=== PATIENT | male | born 1960 ===

== ENCOUNTER 2020-06-16 05:59 | Outpatient (REF) | payer OTHER, SELFPAY ==
[2020-06-16 11:13] LABS: MANUAL DIFF FLAG NO
[2020-06-16 11:39] LABS: Basophils Percent Auto 0.6 % (0-2); Eosinophils Absolute Auto 0.1 X10*3/uL (0.0-0.4); Eosinophils Percent Auto 1.2 % (0-4); Hematocrit 47.8 % (42-52); Hemoglobin 15.4 g/dl (14.0-18.0); Imm Gran Abs Auto 0.02 X10*3/uL (0.00-0.03); Imm Gran Pct Auto 0.3 % (0.0-0.4); Lymphocytes Absolute Auto 1.9 X10*3/uL (1.2-4.9); Lymphocytes Percent Auto 28.7 % (20-40); Mean Corpuscular HGB Conc 32.2 g/dl (31.0-36.0); Mean Corpuscular Hemoglobin 29.4 pg (27.0-33.0); Mean Corpuscular Volume 91.2 fL (80-98); Mean Platelet Volume 11.9 fL (9.4-12.4); Monocytes Absolute Auto 0.6 X10*3/uL (0.1-1.2); Monocytes Percent Auto 8.9 % (2-11); Neutrophils Absolute Auto 4.1 X10*3/uL (2.0-8.3); Neutrophils Percent Auto 60.3 % (45-73); Platelet Count 188 X10*3/uL (160-400); Red Blood Count 5.24 X10*6/uL (4.60-5.80); Red Cell Distribution Width 12.7 % (11.0-16.0); White Blood Count 6.7 X10*3/uL (4.8-10.8)
[2020-06-16 12:11] LABS: Alanine Aminotransferase 38 U/L (0-40); Albumin Level 4.7 g/dL (3.5-5.0); Alkaline Phosphatase 79 U/L (39-117); Anion Gap 14 (12-20); Aspartate Amino Transferase 25 U/L (5-37); Bilirubin Total 0.9 mg/dL (0.0-1.0); Blood Urea Nitrogen 20 mg/dL (9-16); Calcium 9.2 mg/dL (8.4-10.2); Carbon Dioxide 29 mmol/L (22-29); Chloride 103 mmol/L (96-108); Cholesterol 180 mg/dL; Estimated Glomerular Filt Rate > 60; Glucose Fasting 101 mg/dL (60-99); HDL Cholesterol 39 mg/dL; LDL Cholesterol Calculated 114 mg/dl; Potassium 4.3 mmol/L (3.3-5.1); Sodium 142 mmol/L (135-145); Total Protein 6.9 g/dL (6.5-8.0); Triglycerides 137 mg/dL
== END 2020-06-16 06:00 | disposition home or self-care (01) ==
LOC: HO.HMGCLDS 05:59
PROVIDERS: PCP Internal Medicine; Visit Provider Internal Medicine
DX: Z00.01 Encounter for general adult medical examination with abnormal findings (principal); E78.9 Disorder of lipoprotein metabolism, unspecified; L21.9 Seborrheic dermatitis, unspecified
CPT/HCPCS: 36415; 80053; 80061; 85025

== ENCOUNTER 2020-10-09 15:08 | Outpatient (REF) | payer OTHER, SELFPAY ==
--- NOTE | ~2020-10-09 | XR_ITS ---
EXAMINATION: XR HAND, LEFT CLINICAL INFORMATION: Arthritis. Pain COMPARISON: None TECHNIQUE: PA, lateral, and oblique views of the left hand. FINDINGS: Subchondral cystic change noted at the base of the lunate. There is degenerative change at the first CMC joint. No fracture, dislocation or destructive process. XR/XR hand LT min 3V IMPRESSION: Degenerative change noted.
--- NOTE | ~2020-10-09 | XR_ITS ---
EXAMINATION: XR HAND, RIGHT CLINICAL INFORMATION: Hand pain. COMPARISON: None TECHNIQUE: PA, lateral, and oblique views of the right and left hand. FINDINGS: Right hand: Bone density normal. No fracture, dislocation or destructive lesion or erosive change. There is minor narrowing however at the first TMT joint space with marginal osteophyte formation. Left hand: Bone density normal. No fracture, dislocation or destructive lesion. There is subchondral cystic degenerative change at the base of the lunate. There is narrowing of the first CMC joint space with marginal spurring. XR/XR hand RT min 3V IMPRESSION: Bilateral degenerative arthritic changes noted but no fracture or destructive process.
== END 2020-10-09 15:09 | disposition home or self-care (01) ==
LOC: HO.HMGCX 15:08
PROVIDERS: PCP Internal Medicine; Visit Provider Internal Medicine
DX: M79.641 Pain in right hand (principal); M79.642 Pain in left hand
CPT/HCPCS: 73130

== ENCOUNTER 2021-01-11 06:01 | Outpatient (REF) | payer OTHER, SELFPAY ==
[2021-01-11 11:53] LABS: Alanine Aminotransferase 37 U/L (0-40); Albumin Level 4.5 g/dL (3.5-5.0); Alkaline Phosphatase 72 U/L (39-117); Aspartate Amino Transferase 22 U/L (5-37); Bilirubin Direct 0.2 mg/dL (0.0-0.5); Bilirubin Total 0.7 mg/dL (0.0-1.0); Cholesterol 189 mg/dL; HDL Cholesterol 44 mg/dL; LDL Cholesterol Calculated 119 mg/dl; Total Protein 6.7 g/dL (6.5-8.0); Triglycerides 132 mg/dL
== END 2021-01-11 06:02 | disposition home or self-care (01) ==
LOC: HO.HMGCLDS 06:01
PROVIDERS: PCP Internal Medicine; Visit Provider Internal Medicine
DX: E78.9 Disorder of lipoprotein metabolism, unspecified (principal)
CPT/HCPCS: 36415; 80061; 80076

== ENCOUNTER 2021-07-08 06:00 | Outpatient (REF) | payer OTHER, SELFPAY ==
[2021-07-08 12:11] LABS: Alanine Aminotransferase 43 U/L (0-40); Albumin Level 4.4 g/dL (3.5-5.0); Alkaline Phosphatase 68 U/L (39-117); Anion Gap 15 (12-20); Aspartate Amino Transferase 29 U/L (5-37); Bilirubin Direct 0.2 mg/dL (0.0-0.5); Bilirubin Total 0.7 mg/dL (0.0-1.0); Blood Urea Nitrogen 17 mg/dL (9-16); Calcium 9.4 mg/dL (8.4-10.2); Carbon Dioxide 22 mmol/L (22-29); Chloride 107 mmol/L (96-108); Estimated Glomerular Filt Rate > 60; Glucose Fasting 122 mg/dL (60-99); Potassium 4.4 mmol/L (3.3-5.1); Sodium 140 mmol/L (135-145); Total Protein 6.7 g/dL (6.5-8.0)
== END 2021-07-08 06:01 | disposition home or self-care (01) ==
LOC: HO.HMGCLDS 06:00
PROVIDERS: Visit Provider Internal Medicine
DX: E78.9 Disorder of lipoprotein metabolism, unspecified (principal)
CPT/HCPCS: 36415; 80053; 82248

== ENCOUNTER → 2021-08-12 12:56 | Outpatient (BNVA) | payer OTHER, SELFPAY | PROVIDERS: PCP Internal Medicine; Visit Provider Internal Medicine | DX: S61.216A Laceration without foreign body of right little finger without damage to nail, initial encounter (principal); W23.0XXA Caught, crushed, jammed, or pinched between moving objects, initial encounter; Z23 Encounter for immunization | CPT/HCPCS: 12001; 90715; 99203 ==

== ENCOUNTER → 2021-08-13 09:31 | Outpatient (BNVA) | payer OTHER, SELFPAY | PROVIDERS: PCP Internal Medicine; Visit Provider Internal Medicine | DX: S61.216A Laceration without foreign body of right little finger without damage to nail, initial encounter (principal); W26.9XXA Contact with unspecified sharp object(s), initial encounter | CPT/HCPCS: 99213 ==

== ENCOUNTER → 2021-08-20 13:18 | Outpatient (BNVA) | payer OTHER, SELFPAY | PROVIDERS: PCP Internal Medicine; Visit Provider Internal Medicine | DX: S61.316A Laceration without foreign body of right little finger with damage to nail, initial encounter (principal); W26.9XXA Contact with unspecified sharp object(s), initial encounter | CPT/HCPCS: 99213 ==

== ENCOUNTER 2022-03-07 09:23 | Outpatient (REF) | payer OTHER, SELFPAY ==
--- NOTE | ~2022-03-07 | XR_ITS ---
EXAMINATION: XR CHEST CLINICAL INFORMATION: Cough COMPARISON: None TECHNIQUE: 2 views of the chest were obtained. FINDINGS: No significant abnormality is noted involving the heart, lungs, mediastinum, bony thorax or soft tissues. XR/XR chest 2V IMPRESSION: Unremarkable chest examination.
[2022-03-07 11:36] LABS: MANUAL DIFF FLAG NO
[2022-03-07 11:49] LABS: Basophils Absolute Auto 0.1 X10*3/uL (0.0-0.2); Basophils Percent Auto 0.8 % (0-2); Eosinophils Absolute Auto 0.1 X10*3/uL (0.0-0.4); Eosinophils Percent Auto 0.6 % (0-4); Hematocrit 48.5 % (42.0-52.0); Hemoglobin 15.8 g/dl (14.0-18.0); Imm Gran Abs Auto 0.04 X10*3/uL (0.00-0.03); Imm Gran Pct Auto 0.5 % (0.0-0.4); Lymphocytes Absolute Auto 1.6 X10*3/uL (1.2-4.9); Lymphocytes Percent Auto 18.5 % (20-40); Mean Corpuscular HGB Conc 32.6 g/dl (31.0-36.0); Mean Corpuscular Hemoglobin 29.1 pg (27.0-33.0); Mean Corpuscular Volume 89.3 fL (80.0-98.0); Mean Platelet Volume 11.3 fL (9.4-12.4); Monocytes Absolute Auto 0.5 X10*3/uL (0.1-1.2); Monocytes Percent Auto 5.8 % (2-11); Neutrophils Absolute Auto 6.5 x10*3/uL (2.0-8.3); Neutrophils Percent Auto 73.8 % (45-73); Platelet Count 200 X10*3/uL (160-400); Red Blood Count 5.43 X10*6/uL (4.60-5.80); Red Cell Distribution Width 13.1 % (11.0-16.0); White Blood Count 8.7 X10*3/uL (4.8-10.8)
[2022-03-07 12:11] LABS: Alanine Aminotransferase 69 U/L (0-40); Albumin Level 4.5 g/dL (3.5-5.0); Alkaline Phosphatase 81 U/L (39-117); Anion Gap 12 (12-20); Aspartate Amino Transferase 36 U/L (5-37); Bilirubin Direct 0.2 mg/dL (0.0-0.5); Bilirubin Total 0.6 mg/dL (0.0-1.0); Blood Urea Nitrogen 18 mg/dL (9-16); Calcium 9.6 mg/dL (8.4-10.2); Carbon Dioxide 28 mmol/L (22-29); Chloride 105 mmol/L (96-108); Estimated Glomerular Filt Rate > 60; Glucose Random 102 mg/dL (60-115); Potassium 4.4 mmol/L (3.3-5.1); Sodium 141 mmol/L (135-145); Total Protein 6.8 g/dL (6.5-8.0)
[2022-03-07 12:29] LABS: Erythrocyte Sedimentation Rate 1 MM/HR (0-15)
[2022-03-08 15:57] LABS: CRP High Sensitivity 0.7 mg/L
== END 2022-03-07 09:24 | disposition home or self-care (01) ==
LOC: HO.HMGCX 09:23
PROVIDERS: PCP Internal Medicine; Visit Provider Nurse Practitioner Family
DX: R05.9 Cough, unspecified (principal); R10.9 Unspecified abdominal pain
CPT/HCPCS: 36415; 71046; 80048; 80076; 85025; 85652; 86141

== ENCOUNTER 2022-05-17 06:02 | Outpatient (REF) | payer OTHER, SELFPAY ==
[2022-05-17 12:10] LABS: Cholesterol 191 mg/dL; HDL Cholesterol 42 mg/dL; LDL Cholesterol Calculated 123 mg/dl; Triglycerides 130 mg/dL
[2022-05-17 12:34] LABS: Estimated Average Glucose 108 mg/dL; Hemoglobin A1C 148.6991 umol/L; Hemoglobin A1c % 5.4 %
== END 2022-05-17 06:03 | disposition home or self-care (01) ==
LOC: HO.HMGCLDS 06:02
PROVIDERS: PCP Internal Medicine; Visit Provider Internal Medicine
DX: R73.01 Impaired fasting glucose (principal); E78.9 Disorder of lipoprotein metabolism, unspecified
CPT/HCPCS: 36415; 80061; 83036

== ENCOUNTER 2022-11-15 06:02 | Outpatient (REF) | payer OTHER, SELFPAY ==
[2022-11-15 11:48] LABS: Estimated Average Glucose 105 mg/dL; Hemoglobin A1c % 5.3 %
[2022-11-15 12:02] LABS: Alanine Aminotransferase 34 U/L (0-40); Albumin Level 4.6 g/dL (3.5-5.0); Alkaline Phosphatase 64 U/L (39-117); Anion Gap 16 (12-20); Aspartate Amino Transferase 22 U/L (5-37); Bilirubin Total 0.9 mg/dL (0.0-1.0); Blood Urea Nitrogen 20 mg/dL (9-16); Calcium 9.8 mg/dL (8.4-10.2); Carbon Dioxide 22 mmol/L (22-29); Chloride 108 mmol/L (96-108); Cholesterol 209 mg/dL; Estimated Glomerular Filt Rate 56; Glucose Fasting 118 mg/dL (60-99); HDL Cholesterol 42 mg/dL; LDL Cholesterol Calculated 136 mg/dl; Potassium 3.8 mmol/L (3.3-5.1); Sodium 142 mmol/L (135-145); Triglycerides 155 mg/dL
== END 2022-11-15 06:03 | disposition home or self-care (01) ==
LOC: HO.HMGCLDS 06:02
PROVIDERS: PCP Internal Medicine; Visit Provider Internal Medicine
DX: Z00.01 Encounter for general adult medical examination with abnormal findings (principal); E78.9 Disorder of lipoprotein metabolism, unspecified; R73.01 Impaired fasting glucose
CPT/HCPCS: 36415; 80053; 80061; 83036

== ENCOUNTER 2022-11-25 13:48 | Outpatient (AMB) | payer OTHER, SELFPAY ==
[2022-11-25 13:50] VITALS: BP 130/84; PULSE 87; O2SAT 94; BMI 26.6
--- NOTE | 2022-11-25 13:50 | MHC.PC.OV ---
Vital Signs 11/25/22 13:50 Height 5 ft 10 in Weight 185 lb 6 oz BMI 26.6 BP 130/84 Blood Pressure Location Rt brachial Position Sitting Pulse 87 Pulse Source Pulse Oximeter Pulse Oximetry (%) 94 Oxygen Delivery Method Room Air Intake Visit Reasons: 6 month follow up Med Allergies No Known Allergies Allergy (Verified 11/25/22 13:50) Medication List - Last Reconciled 11/25/22 by Noreen Montes De Oca MD hydrocortisone 2.5% 1 appl topical BID PRN 30 days simvastatin 80 mg PO BEDTIME 90 days Tobacco use date assessed: 11/25/22 Dental Screening Dental Screen Date: 11/25/22 Did you have a dental visit in the last 12 months?: No Did you have a dental problem in the last 6 months where you did not have access to dental care?: No Was dental information given to patient?: No HPI 6 month follow up Med HPI Details Patient is 62-year-old male this is a 6 follow-up appointment Lipid disorder: Patient is taking simvastatin 80 mg and is tolerating it. Labs were done recently he has LDL is 130s range, we discussed adding Zetia which patient does not want at this time. Patient is prediabetic with elevated fasting sugar but hemoglobin A1c is 5.5 Patient had a physical exam appointment in May of next year Labs to be repeated before visit fasting PFSH Family History Other Substance use disorder Social History Housing: House Patient Tobacco Use Status: Former Tobacco user Quit Date: 1999 Tobacco use type: Cigarette Years Smoked: 25 year e-Cigarette/Vaping Use: Never Used service: No Current occupational status: employed Cognitive needs: No Hearing needs: No Vision needs: Yes Questionnaire Thrive Questionnaire Date Thrive assessed: 05/27/22 AUDIT C Alcohol Use Questionnaire (AUDIT-C) 1. How often do you have a drink containing alcohol?: Never 3. How often do you have six or more drinks on one occasion?: Never Total Score: 0 Score Reviewed/Action Taken: Yes EMANUEL-7 AMB Questionnaire EMANUEL-7 Date EMANUEL - 7 assessed: 05/27/22 Source: Developed by Drs. Hi Cool, Radha Santana, Francisco J Mcdonald and colleagues, with an educational susana from [employer]. Review of Systems Const Denies chills and Denies fever(s) ENT Denies epistaxis and Denies nasal discharge Card Denies chest pain Resp Denies chest congestion, Denies cough and Denies hemoptysis GI Denies diarrhea and Denies nausea Skin/Breast Denies rash Neuro Reports no additional complaints Psych Reports no additional complaints Endo Reports no additional complaints Physical exam (Primary Care) Vital Signs: Last Vital Signs Pulse 87 11/25/22 13:50 BP 130/84 11/25/22 13:50 Pulse Ox 94 11/25/22 13:50 Oxygen Delivery Method Room Air 11/25/22 13:50 BMI result Body Mass Index 26.6 Tobacco/Smoking Status: Tobacco use Status Tobacco use date assessed 11/25/22 11/25/22 13:52 Patient Tobacco Use Status Former Tobacco user 11/25/22 13:52 Tobacco use type Cigarette 11/25/22 13:52 e-Cigarette/Vaping Use Never Used 11/25/22 13:52 Thrive Assessment: Date of Thrive Assessment Date Thrive assessed 05/27/22 11/25/22 13:52 Const General: cooperative, comfortable and no acute distress Orientation/consciousness: patient oriented x3 HENMT Head: Yes normocephalic Eyes General: appearance normal, both eyes and all related structures Neck Neck: Yes supple Resp Effort & Inspection: normal respiratory effort, no cough and no stridor Cardio Rhythm: regular rhythm Heart sounds: S1 normal heart sound present and S2 normal heart sound present Skin General skin exam: turgor normal Neuro General: patient oriented x3, tone normal and moves all extremities Extrem Right lower extremity: no edema Left lower extremity: no edema Assessment and Plan Assessment & Plan (1) Impaired fasting blood sugar: Code(s): R73.01 - Impaired fasting glucose (2) Lipid disorder: Code(s): E78.9 - Disorder of lipoprotein metabolism, unspecified Plan Patient is 62-year-old male this is a 6 follow-up appointment Lipid disorder: Patient is taking simvastatin 80 mg and is tolerating it. Labs were done recently he has LDL is 130s range, we discussed adding Zetia which patient does not want at this time. Patient is prediabetic with elevated fasting sugar but hemoglobin A1c is 5.5 Patient had a physical exam appointment in May of next year Labs to be repeated before visit fasting Orders: Orders Comprehensive [place]. Panel Fast 6 Months E78.9 - Disorder of lipoprotein metabolism, unspecified, R73.01 - Impaired fasting glucose Lipid Panel 6 Months E78.9 - Disorder of lipoprotein metabolism, unspecified, R73.01 - Impaired fasting glucose Medications: Refilled simvastatin 80 mg PO BEDTIME 90 tabs 0RF 90 days Coding Level of Care Code Est Pt Level 3 (45458) Diagnoses Impaired fasting blood sugar R73.01 Lipid disorder E78.9
== END 2022-11-25 14:16 | disposition home or self-care (01) ==
PROVIDERS: Visit Provider Internal Medicine
DX: R73.01 Impaired fasting glucose (principal); E78.9 Disorder of lipoprotein metabolism, unspecified
CPT/HCPCS: 99213

== ENCOUNTER 2023-05-17 06:04 | Outpatient (REF) | payer OTHER, SELFPAY ==
[2023-05-17 11:55] LABS: Alanine Aminotransferase 27 U/L (0-40); Albumin Level 4.3 g/dL (3.5-5.0); Alkaline Phosphatase 63 U/L (39-117); Anion Gap 12 (12-20); Aspartate Amino Transferase 23 U/L (5-37); Bilirubin Total 0.6 mg/dL (0.0-1.0); Blood Urea Nitrogen 18 mg/dL (9-16); Calcium 9.1 mg/dL (8.4-10.2); Carbon Dioxide 25 mmol/L (22-29); Chloride 108 mmol/L (96-108); Cholesterol 178 mg/dL (<200); Estimated Glomerular Filt Rate > 60; Glucose Fasting 114 mg/dL (60-99); HDL Cholesterol 43 mg/dL (>40); LDL Cholesterol Calculated 111 mg/dL (<100); Potassium 4.2 mmol/L (3.3-5.1); Sodium 141 mmol/L (135-145); Total Protein 6.6 g/dL (6.5-8.0); Triglycerides 120 mg/dL (<150)
== END 2023-05-17 06:05 | disposition home or self-care (01) ==
LOC: HO.HMGCLDS 06:04
PROVIDERS: PCP Internal Medicine; Visit Provider Internal Medicine
DX: R73.01 Impaired fasting glucose (principal); E78.9 Disorder of lipoprotein metabolism, unspecified
CPT/HCPCS: 36415; 80053; 80061

== ENCOUNTER 2023-05-31 12:59 | Outpatient (AMB) | payer OTHER, SELFPAY ==
--- NOTE | 2023-05-31 13:14 | A.OFFPC_ITS ---
Vital Signs 05/31/23 13:15 Height 5 ft 10 in Weight 186 lb BMI 26.7 BP 136/80 Blood Pressure Location Lt brachial Position Sitting Pulse 72 Pulse Source Pulse Oximeter Pulse Oximetry (%) 97 Oxygen Delivery Method Room Air Intake Visit Reasons: Annual PE Intake Note: Pt is here today for PE. Allergies No Known Allergies Allergy (Verified 05/31/23 13:16) Medication List - Last Reconciled 05/31/23 by Noreen Montes De Oca MD hydrocortisone 2.5% 1 appl topical BID PRN 30 days simvastatin 80 mg PO BEDTIME 90 days Tobacco use date assessed: 05/31/23 Dental Screening Dental Screen Date: 05/31/23 Did you have a dental visit in the last 12 months?: Yes Did you have a dental problem in the last 6 months where you did not have access to dental care?: No Was dental information given to patient?: Patient has dentist HPI Annual PE HPI Details Physical exam appointment Patient is taking simvastatin 80 mg and is tolerating medication no side effects Medication refills sent, labs recently reviewed, his LDL is 111 which has improved from before Patient says that he has changed his eating habits and is eating more healthy now Patient has impaired fasting sugar of 114 Usually comes every 6 months for follow-up Continued to decline colonoscopy PFSH Family History Other Substance use disorder Social History Housing: [place] Patient Tobacco Use Status: Former Tobacco user Quit Date: 1999 Tobacco use type: Cigarette Years Smoked: 25 year e-Cigarette/Vaping Use: Never Used service: No Current occupational status: employed Cognitive needs: No Hearing needs: No Vision needs: Yes Questionnaire PHQ-9 Over the last 2 weeks, how often have you been bothered by any of the following problems? 1. Little interest or pleasure in doing things: not at all 2. Feeling down, depressed, or hopeless: not at all 3. Trouble falling or staying asleep, or sleeping too much: not at all 4. Feeling tired or having little energy: several days 5. Poor appetite or overeating: not at all 6. Feeling bad about yourself - or that you are a failure or have let yourself or your family down: not at all 7. Trouble concentrating on things, such as reading the newspaper or watching television: not at all 8. Moving or speaking so slowly that other people could have noticed. Or the opposite - being so fidgety or restless that you have been moving around a lot more than usual: not at all 9. Thoughts that you would be better off or of hurting yourself in some way: not at all Total score: 1 Depression Screening Interpretation: Negative Depression Screening Done: Yes 23241 - PHQ-9 Billing: Yes Source: Developed by Drs. Hi Cool, Radha Santana, Francisco J Mcdonald and colleagues, with an educational susana from [employer]. Thrive Questionnaire Date Thrive assessed: 05/31/23 I am a: Patient What is your living situation today?: I have a steady place to live Within the past 12 months, did the food you bought not last and you didn't have the money to get more?: Never true Within the past 12 months, did you worry whether your food would run out before you got money to buy more?: Never true Do you have trouble paying for medicines?: No Do you have trouble getting transportation to medical appointments?: No Do you have trouble paying your heating and electricity bill?: No Do you have trouble taking care of your child, family member or friend?: No Do you have trouble with day-to-day activities such as bathing, preparing meals, shopping, managing finances, etc.?: No Are you currently unemployed and looking for a job?: No Are you interested in more education?: No Please select the resources that you would like help with: None THRIVE Score: 0 AUDIT C Alcohol Use Questionnaire (AUDIT-C) 1. How often do you have a drink containing alcohol?: Never 3. How often do you have six or more drinks on one occasion?: Never Total Score: 0 EMANUEL-7 AMB Questionnaire EMANUEL-7 Date EMANUEL - 7 assessed: 05/31/23 Feeling nervous, anxious, or on edge: 0 = Not at all Not being able to stop or control worryin = Not at all Worrying too much about different things: 0 = Not at all Trouble relaxin = Not at all Being so restless that it is hard to sit still: 0 = Not at all Becoming easily annoyed or irritable: 0 = Not at all Feeling afraid as if something awful might happen: 0 = Not at all Total EMANUEL-7 score (0-4 normal; 5-9 mild; 10-14 moderate; 15-21 severe): 0 Source: Developed by Drs. Hi Cool, Radha Santana, Francisco J Mcdonald and colleagues, with an educational susana from [employer]. Review of Systems Const Denies chills, Denies fever(s) and Denies headache(s) Eyes Denies blurry vision ENT Denies headache(s), Denies nasal discharge, Denies nasal obstruction, Denies odynophagia and Denies sinus pain Card Denies chest pain at rest and Denies chest pain with activity Resp Denies cough and Denies hemoptysis GI Denies diarrhea, Denies odynophagia, Denies vomiting and Denies hematemesis Reports as per HPI Musc Denies abnormal gait Skin/Breast Reports as per HPI Neuro Denies Neuro-related abnormal movements, Denies Abnormal speech present, Denies abnormal gait, Denies headache(s) and Denies Sensory deficit (Neuro) Psych Denies mood swings and Denies paranoia Endo Reports as per HPI Matt/Lymph Reports as per HPI Aller/Immun Reports as per HPI Physical exam (Primary Care) Vital Signs: Last Vital Signs Pulse 72 05/31/23 13:15 BP 136/80 05/31/23 13:15 Pulse Ox 97 05/31/23 13:15 Oxygen Delivery Method Room Air 05/31/23 13:15 BMI result Body Mass Index 26.7 Tobacco/Smoking Status: Tobacco use Status Tobacco use date assessed 05/31/23 05/31/23 13:18 Patient Tobacco Use Status Former Tobacco user 05/31/23 13:18 Tobacco use type Cigarette 05/31/23 13:18 e-Cigarette/Vaping Use Never Used 05/31/23 13:18 PHQ-9: PHQ-9 Score PHQ-9: Total score 1 05/31/23 13:18 Depression Screening Interpretation: Negative Thrive Assessment: Date of Thrive Assessment Date Thrive assessed 05/31/23 05/31/23 13:18 Const General: cooperative, comfortable and no acute distress Orientation/consciousness: patient oriented x3 HENMT Head: Yes normocephalic and Yes atraumatic Eyes General: appearance normal, both eyes and all related structures Pupils: Equal, round and reactive pupils present EOM: EOMs intact bilaterally Neck Neck: Yes supple and No lymphadenopathy Thyroid: Thyroid normal Lymphatic: no lymphadenopathy noted Resp Effort & Inspection: normal respiratory effort and able to speak in complete sentences Auscultation: clear to auscultation bilaterally Cardio Heart sounds: S1 normal heart sound present and S2 normal heart sound present GI Palpation (GI): Soft to palpation and nontender Auscultation: normal bowel sounds General: Yes no CVA tenderness Back/Spine/Pelvis Back: no CVA tenderness Skin General skin exam: elasticity normal and turgor normal Neuro General: patient oriented x3 and gait normal Cranial nerves: Yes Equal, round and reactive pupils present Speech: No Abnormal speech present Sensory Exam: No Sensory deficit (Neuro) Coordination: tandem gait normal and Romberg test negative Extrem General: Yes normal exam except as noted and No edema Assessment and Plan Assessment & Plan (1) Encounter for general adult medical examination with abnormal findings: Code(s): Z00.01 - Encounter for general adult medical examination with abnormal findings (2) Lipid disorder: Code(s): E78.9 - Disorder of lipoprotein metabolism, unspecified (3) Impaired fasting blood sugar: Code(s): R73.01 - Impaired fasting glucose Plan Physical exam appointment Patient is taking simvastatin 80 mg and is tolerating medication no side effects Medication refills sent, labs recently reviewed, his LDL is 111 which has improved from before Patient says that he has changed his eating habits and is eating more healthy now Patient has impaired fasting sugar of 114 Usually comes every 6 months for follow-up Continued to decline colonoscopy Orders: Orders Comprehensive [place]. Panel Fast 6 Months E78.9 - Disorder of lipoprotein metabolism, unspecified, R73.01 - Impaired fasting glucose, Z00.01 - Encounter for general adult medical examination with abnormal findings Hemoglobin A1c 6 Months E78.9 - Disorder of lipoprotein metabolism, unspecified, R73.01 - Impaired fasting glucose, Z00.01 - Encounter for general adult medical examination with abnormal findings Complete Blood Count Auto Diff 6 Months E78.9 - Disorder of lipoprotein metabolism, unspecified, R73.01 - Impaired fasting glucose, Z00.01 - Encounter for general adult medical examination with abnormal findings Lipid Panel 6 Months E78.9 - Disorder of lipoprotein metabolism, unspecified, R73.01 - Impaired fasting glucose, Z00.01 - Encounter for general adult medical examination with abnormal findings Medications: Refilled simvastatin 80 mg PO BEDTIME 90 tabs 1RF 90 days Coding Level of Care Code Est Pt Prev Care 40-64y(33360) Diagnoses Encounter for general adult medical examination with abnormal findings Z00.01 Lipid disorder E78.9 Impaired fasting blood sugar R73.01
[2023-05-31 13:15] VITALS: BP 136/80; PULSE 72; O2SAT 97; BMI 26.7
== END 2023-05-31 13:40 | disposition home or self-care (01) ==
PROVIDERS: Visit Provider Internal Medicine
DX: Z00.00 Encounter for general adult medical examination without abnormal findings (principal); E78.9 Disorder of lipoprotein metabolism, unspecified; R73.01 Impaired fasting glucose
CPT/HCPCS: 99396

== ENCOUNTER 2023-11-09 12:53 | Outpatient (REF) | payer OTHER, SELFPAY ==
[2023-11-09 16:06] LABS: MANUAL DIFF FLAG NO
[2023-11-09 16:14] LABS: Basophils Percent Auto 0.5 % (0-2); Eosinophils Absolute Auto 0.1 X10*3/uL (0.0-0.4); Eosinophils Percent Auto 0.9 % (0-4); Hematocrit 45.6 % (42.0-52.0); Hemoglobin 15.5 g/dl (14.0-18.0); Imm Gran Abs Auto 0.02 X10*3/uL (0.00-0.03); Imm Gran Pct Auto 0.3 % (0.0-0.4); Lymphocytes Absolute Auto 2.2 X10*3/uL (1.2-4.9); Lymphocytes Percent Auto 28.2 % (20-40); Mean Corpuscular Hemoglobin 30.4 pg (27.0-33.0); Mean Corpuscular Volume 89.4 fL (80.0-98.0); Mean Platelet Volume 11.7 fL (9.4-12.4); Monocytes Absolute Auto 0.7 X10*3/uL (0.1-1.2); Monocytes Percent Auto 8.6 % (2-11); Neutrophils Absolute Auto 4.8 x10*3/uL (2.0-8.3); Neutrophils Percent Auto 61.5 % (45-73); Platelet Count 200 X10*3/uL (160-400); Red Cell Distribution Width 12.7 % (11.0-16.0); White Blood Count 7.8 X10*3/uL (4.8-10.8)
[2023-11-09 16:31] LABS: Alanine Aminotransferase 30 U/L (0-40); Albumin Level 4.6 g/dL (3.5-5.0); Alkaline Phosphatase 79 U/L (39-117); Anion Gap 13 (12-20); Aspartate Amino Transferase 22 U/L (5-37); Bilirubin Total 0.6 mg/dL (0.0-1.0); Blood Urea Nitrogen 13 mg/dL (9-16); Calcium 9.9 mg/dL (8.4-10.2); Carbon Dioxide 24 mmol/L (22-29); Chloride 107 mmol/L (96-108); Cholesterol 193 mg/dL (<200); Estimated Glomerular Filt Rate 59; Glucose Fasting 84 mg/dL (60-99); HDL Cholesterol 41 mg/dL (>40); LDL Cholesterol Calculated 112 mg/dL (<100); Potassium 4.3 mmol/L (3.3-5.1); Sodium 140 mmol/L (135-145); Total Protein 7.1 g/dL (6.5-8.0); Triglycerides 200 mg/dL (<150)
[2023-11-09 16:48] LABS: Estimated Average Glucose 111 mg/dL; Hemoglobin A1c % 5.5 % (<6.0)
== END 2023-11-09 12:54 | disposition home or self-care (01) ==
LOC: HO.HMGCLDS 12:53
PROVIDERS: PCP Internal Medicine; Visit Provider Internal Medicine
DX: Z00.01 Encounter for general adult medical examination with abnormal findings (principal); E78.9 Disorder of lipoprotein metabolism, unspecified; R73.01 Impaired fasting glucose
CPT/HCPCS: 36415; 80053; 80061; 83036; 85025

== ENCOUNTER 2023-11-22 09:15 | Outpatient (AMB) | payer OTHER, SELFPAY ==
[2023-11-22 09:21] VITALS: BP 140/80; PULSE 71; O2SAT 96; BMI 27.3
--- NOTE | 2023-11-22 09:21 | A.OFFPC_ITS ---
Vital Signs 11/22/23 09:21 Height 5 ft 10 in Weight 190 lb 2 oz BMI 27.3 BP 140/80 H Blood Pressure Location Rt brachial Position Sitting Pulse 71 Pulse Source Pulse Oximeter Pulse Oximetry (%) 96 Oxygen Delivery Method Room Air Intake Visit Reasons: 6M F/U Allergies No Known Allergies Allergy (Verified 11/22/23 09:21) Tobacco use date assessed: 05/31/23 Dental Screening Dental Screen Date: 05/31/23 HPI 6M F/U HPI Details Patient is 63-year-old male this is a 6 follow-up appointment Patient suffers from osteoarthritis multiple joints especially small joints of hands He also have a trigger finger left index finger, patient had a cortisone injection in the past for that which did help But still have some limitation in range of motion 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 Patient is prediabetic we are monitoring the sugar [facility] Family History Other Substance use disorder Social History Housing: House Patient Tobacco Use Status: Former Tobacco user Tobacco use type: Cigarette Years Smoked: 25 year e-Cigarette/Vaping Use: Never Used service: No Current occupational status: employed Cognitive needs: No Hearing needs: No Vision needs: Yes Questionnaire PHQ-9 Over the last 2 weeks, how often have you been bothered by any of the following problems? 1. Little interest or pleasure in doing things: not at all 2. Feeling down, depressed, or hopeless: not at all 3. Trouble falling or staying asleep, or sleeping too much: not at all 4. Feeling tired or having little energy: not at all 5. Poor appetite or overeating: not at all 6. Feeling bad about yourself - or that you are a failure or have let yourself or your family down: not at all 7. Trouble concentrating on things, such as reading the newspaper or watching television: not at all 8. Moving or speaking so slowly that other people could have noticed. Or the opposite - being so fidgety or restless that you have been moving around a lot more than usual: not at all 9. Thoughts that you would be better off or of hurting yourself in some way: not at all Total score: 0 Depression Screening Interpretation: Negative Depression Screening Done: Yes 55755 - PHQ-9 Billing: Yes Source: Developed by Drs. Hi Cool, Radha Santana, Francisco J Mcdonald and colleagues, with an educational susana from [employer]. Thrive Questionnaire Date Thrive assessed: 11/22/23 I am a: Patient What is your living situation today?: I have a steady place to live Within the past 12 months, did the food you bought not last and you didn't have the money to get more?: Never true Within the past 12 months, did you worry whether your food would run out before you got money to buy more?: Never true Do you have trouble paying for medicines?: No Do you have trouble getting transportation to medical appointments?: No Do you have trouble paying your heating and electricity bill?: No Do you have trouble taking care of your child, family member or friend?: I choose not to answer this question Do you have trouble with day-to-day activities such as bathing, preparing meals, shopping, managing finances, etc.?: I choose not to answer this question Are you currently unemployed and looking for a job?: I choose not to answer this question Are you interested in more education?: I choose not to answer this question Please select the resources that you would like help with: Housing/Correction Currently or been in a relationship where the following occur: I choose not to answer THRIVE Score: 0 AUDIT C Alcohol Use Questionnaire (AUDIT-C) 1. How often do you have a drink containing alcohol?: Never 3. How often do you have six or more drinks on one occasion?: Never Total Score: 0 Score Reviewed/Action Taken: Yes EMANUEL-7 AMB Questionnaire EMANUEL-7 Date EMANUEL - 7 assessed: 11/22/23 Feeling nervous, anxious, or on edge: 0 = Not at all Not being able to stop or control worryin = Not at all Worrying too much about different things: 0 = Not at all Trouble relaxin = Not at all Being so restless that it is hard to sit still: 0 = Not at all Becoming easily annoyed or irritable: 0 = Not at all Feeling afraid as if something awful might happen: 0 = Not at all Total EMANUEL-7 score (0-4 normal; 5-9 mild; 10-14 moderate; 15-21 severe): 0 Source: Developed by Drs. Hi Cool, Radha Santana, Francisco J Mcdonald and colleagues, with an educational susana from [employer]. EMANUEL-7 Assessment Billing EMANUEL-7 Assessment Tool: EMANUEL-7 Assessment 46578 Review of Systems Const Denies chills and Denies fever(s) ENT Denies epistaxis and Denies nasal discharge Card Denies chest pain Resp Denies chest congestion, Denies cough and Denies hemoptysis GI Denies diarrhea and Denies nausea Skin/Breast Denies rash Neuro Reports no additional complaints Psych Reports no additional complaints Endo Reports no additional complaints Physical exam (Primary Care) Vital Signs: Last Vital Signs Pulse 71 11/22/23 09:21 BP 140/80 H 11/22/23 09:21 Pulse Ox 96 11/22/23 09:21 Oxygen Delivery Method Room Air 11/22/23 09:21 BMI result Body Mass Index 27.3 Tobacco/Smoking Status: Tobacco use Status Tobacco use date assessed 05/31/23 11/22/23 09:26 Patient Tobacco Use Status Former Tobacco user 11/22/23 09:26 Tobacco use type Cigarette 11/22/23 09:26 e-Cigarette/Vaping Use Never Used 11/22/23 09:26 PHQ-9: PHQ-9 Score PHQ-9: Total score 0 11/22/23 09:56 Depression Screening Interpretation: Negative Thrive Assessment: Date of Thrive Assessment Date Thrive assessed 11/22/23 11/22/23 09:29 Currently or been in a relationship where the following occur: I choose not to answer Const General: cooperative, comfortable and no acute distress Orientation/consciousness: patient oriented x3 HENMT Head: Yes normocephalic Eyes General: appearance normal, both eyes and all related structures Neck Neck: Yes supple Resp Effort & Inspection: normal respiratory effort, no cough and no stridor Cardio Rhythm: regular rhythm Heart sounds: S1 normal heart sound present and S2 normal heart sound present Skin General skin exam: turgor normal Neuro General: patient oriented x3, tone normal and moves all extremities Extrem Right lower extremity: no edema Left lower extremity: no edema Assessment and Plan Assessment & Plan (1) Lipid disorder: Code(s): E78.9 - Disorder of lipoprotein metabolism, unspecified (2) Impaired fasting blood sugar: Code(s): R73.01 - Impaired fasting glucose (3) Osteoarthritis involving multiple joints on both sides of body: Code(s): M15.9 - Polyosteoarthritis, unspecified (4) Trigger finger, left index finger: Code(s): M65.322 - Trigger finger, left index finger (5) Elevated blood pressure reading: Code(s): R03.0 - Elevated blood-pressure reading, without diagnosis of hypertension Plan Patient is 63-year-old male this is a 6 follow-up appointment Patient suffers from osteoarthritis multiple joints especially small joints of hands He also have a trigger finger left index finger, patient had a cortisone injection in the past for that which did help But still have some limitation in range of motion 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 Patient is prediabetic we are monitoring the sugar Coding Level of Care Code Est Pt Level 4 (15291) Diagnoses Lipid disorder E78.9 Impaired fasting blood sugar R73.01 Osteoarthritis involving multiple joints on both sides of body M15.9 Trigger finger, left index finger M65.322 Elevated blood pressure reading R03.0 Additional Codes EMANUEL-7 Assessment Billing - EMANUEL-7 Assessment Tool: EMANUEL-7 Assessment [id number] ([id number])
== END 2023-11-22 09:57 | disposition home or self-care (01) ==
PROVIDERS: PCP Internal Medicine; Visit Provider Internal Medicine
DX: R73.01 Impaired fasting glucose (principal); E78.9 Disorder of lipoprotein metabolism, unspecified; M15.9 Polyosteoarthritis, unspecified; M65.322 Trigger finger, left index finger; R03.0 Elevated blood-pressure reading, without diagnosis of hypertension
CPT/HCPCS: 99214

== ENCOUNTER 2024-05-30 06:06 | Outpatient (REF) | payer OTHER, SELFPAY ==
--- OUTSIDE RECORDS SUMMARY | 2024-05-30 06:08 | XMS_ITS | Clinical Summary ---
Author Organization [employer] Address [address] [facility] [address] [place] [address] Care Team Providers Care Mortar Mixer Name Role Phone Unavailable Primary Care Provider Unavailabl e Immunizations Name Administration Dates Next Due Influenza injectable quadrivalent preservative f ree 01/04/2023 Pfizer Covid-19 Vaccine 12+ 04/27/2023 Tdap 08/12/2021 Social History Tobacco Use Types Packs/Day Years Used Date Smoking Tobacco: Never Assessed Sex and Gender Information Value Date Recorded Sex Assigned at Male 04/27/2023 1:55 PM EST Legal Sex Male 9:35 AM EST Gender Identity Male 04/27/2023 1:55 PM EST Sexual Orientation Straight 04/27/2023 1: 55 PM EST Plan of Treatment Health Maintenance Due Date Last Done Comments CT Colonography 1961 Colonoscopy 1961 Colorectal Cancer Screening 1961 Depression Screening 1961 FIT DNA/Cologuard 1961 FIT 1961 FOBT 1961 HIV Screening 1961 Lipid Panel 1961 SDOH Screening 1961 Sigmoidoscopy 1961 Alcohol/Substance Use Screening 1973 Tobacco Screening 1973 Hepatitis C Screening 1979 Pneumococcal Vaccine: 50+ Years (1 of 1 - PCV) 2011 Zoster Vaccines (1 of 2) 2011 COVID-19 Vaccine ( season) 2023 04/27/2023, 01/11/2023, 07/02/2022, Additional history exists Influenza Vaccine (#1) 2023 01/04/2023 DTaP/Tdap/Td Vaccines (2 - Td or Tdap) 08/13/2031 08/12/2021 RSV Patients and Patients Aged 60 years or older (1 - 1-dose 75+ series) 2036 HIB Vaccines Aged Out No longer eligi ble based on patient's age to complete this topic HPV Vaccines Aged Out No longer eligi ble based on patient's age to complete this topic Hepatitis A Vaccines Aged Out No long er eligible based on patient's age to complete this topic Hepatitis B Vaccines Aged Out No long er eligible based on patient's age to complete this topic IPV Vaccines Aged Out No longer eligi ble based on patient's age to complete this topic Meningococcal Vaccine Aged Out No chencho vel eligible based on patient's age to complete this topic RSV under 20 months Aged Out No longe r eligible based on patient's age to complete this topic Rotavirus Vaccines Aged Out No longer eligible based on patient's age to complete this topic Insurance [facility] ST[facility] ACO
[2024-05-30 10:13] LABS: MANUAL DIFF FLAG NO
[2024-05-30 10:25] LABS: Basophils Absolute Auto 0.1 X10*3/uL (0.0-0.2); Basophils Percent Auto 0.6 % (0-2); Eosinophils Absolute Auto 0.1 X10*3/uL (0.0-0.4); Eosinophils Percent Auto 0.8 % (0-4); Hematocrit 46.2 % (42.0-52.0); Hemoglobin 15.7 g/dl (14.0-18.0); Imm Gran Abs Auto 0.03 X10*3/uL (0.00-0.03); Imm Gran Pct Auto 0.3 % (0.0-0.4); Lymphocytes Absolute Auto 1.4 X10*3/uL (1.2-4.9); Lymphocytes Percent Auto 13.1 % (20-40); Mean Corpuscular Hemoglobin 29.8 pg (27.0-33.0); Mean Corpuscular Volume 87.8 fL (80.0-98.0); Mean Platelet Volume 11.1 fL (9.4-12.4); Monocytes Absolute Auto 0.9 X10*3/uL (0.1-1.2); Monocytes Percent Auto 8.8 % (2-11); Neutrophils Absolute Auto 8.2 x10*3/uL (2.0-8.3); Neutrophils Percent Auto 76.4 % (45-73); Platelet Count 164 X10*3/uL (160-400); Red Blood Count 5.26 X10*6/uL (4.60-5.80); Red Cell Distribution Width 12.8 % (11.0-16.0); White Blood Count 10.7 X10*3/uL (4.8-10.8)
[2024-05-30 10:39] LABS: Albumin Level 4.3 g/dL (3.5-5.0); Alkaline Phosphatase 80 U/L (39-117); Anion Gap 12 (12-20); Aspartate Amino Transferase 27 U/L (5-37); Bilirubin Total 0.6 mg/dL (0.0-1.0); Blood Urea Nitrogen 17 mg/dL (9-16); Calcium 9.4 mg/dL (8.4-10.2); Carbon Dioxide 22 mmol/L (22-29); Chloride 109 mmol/L (96-108); Cholesterol 176 mg/dL (<200); Estimated Glomerular Filt Rate 59; Glucose Fasting 114 mg/dL (60-99); HDL Cholesterol 41 mg/dL (>40); LDL Cholesterol Calculated 106 mg/dL (<100); Potassium 3.9 mmol/L (3.3-5.1); Sodium 139 mmol/L (135-145); Total Protein 7.1 g/dL (6.5-8.0); Triglycerides 147 mg/dL (<150)
[2024-05-30 10:59] LABS: Alanine Aminotransferase 33 U/L (0-40)
== END 2024-05-30 06:07 | disposition home or self-care (01) ==
LOC: HO.HMGCLDS 06:06
PROVIDERS: PCP Internal Medicine; Visit Provider Internal Medicine
DX: E78.9 Disorder of lipoprotein metabolism, unspecified (principal)
CPT/HCPCS: 36415; 80053; 80061; 85025

== ENCOUNTER 2024-06-05 11:16 | Outpatient (AMB) | payer OTHER, SELFPAY ==
[2024-06-05 11:25] VITALS: BP 148/96; PULSE 78; O2SAT 96; BMI 27.6
--- NOTE | 2024-06-05 11:25 | MHC.PC.OV ---
Vital Signs 06/05/24 11:25 Height 5 ft 10 in Weight 192 lb 4 oz BMI 27.6 BP 148/96 H Blood Pressure Location Lt brachial Position Sitting Pulse 78 Pulse Source Pulse Oximeter Pulse Oximetry (%) 96 Oxygen Delivery Method Room Air Intake Visit Reasons: Annual PE Allergies No Known Allergies Allergy (Verified 11/22/23 09:21) Medication List - Last Reconciled 06/05/24 by Noreen Montes De Oca MD hydrocortisone 2.5% 1 appl topical BID PRN 30 days simvastatin 80 mg PO BEDTIME 90 days Tobacco use date assessed: 05/31/23 Dental Screening Dental Screen Date: 05/31/23 HPI Annual PE HPI Details Physical exam - The patient is a 64-year-old male presenting with a persistent cough and chest congestion. - Symptom onset was one week ago, initiated by a sore throat which temporarily resolved but recurred. - There has been an associated productive cough with greenish-yellow phlegm. - requiring intermittent use of guaifenesin. - Cough severity peaked yesterday but is reduced today. Continued to declined to do colonoscopy Medications - Guaifenesin 100 mg per hour for chest congestion - atorvastatin 80 mg for lipid disorder Diagnostic results - Fasting blood sugar: Prediabetic range Patient Instructions - Begin prescribed antibiotics as advised. - Continue using usvi-swd-eevtarq cough medicine such as Delsym, if necessary, as directed. - Monitor symptoms and report if no improvement following the completion of antibiotics. - Continue use of guaifenesin for chest congestion. - Use probiotics concurrently with antibiotics to maintain gut emmanuel. Review of Systems - General: No fever no chills - Neurological: No headaches no dizziness - Ear nose throat: no hearing difficulty no ear pain - Cardiovascular: No syncope, no chest pain, no palpitations - Gastrointestinal: No nausea vomiting or diarrhea - Endocrine: No polyuria polydipsia no heat intolerance - Genitourinary: No dysuria - Skin: No new complaints Physical Exam General: Cooperative, healthy appearing, comfortable, no acute distress Orientation: Patient oriented x3 Head: Normal to inspection Ears: Within normal limit visually Nose: Normal external nose present Face and sinus: Normal facial exam Eyes: Appearance normal, extraocular movement intact pupils reactive Neck: Normal visual inspection and supple, a little bit of glands are swollen Respiratory: Normal respiratory effort and able to speak in complete sentences. Clear to auscultation, no stridor, Cardiovascular: S1 and S2, sounds good GI: Normal to inspection. Soft to palpation and nontender Skin: Turgor normal, no acute findings Neuro: Patient oriented x3, motor sensory intact, balance intact, tandem pass Extremities: Normal to inspection, no swelling, knees are okay PFSH Family History Other Substance use disorder Social History Housing: House Patient Tobacco Use Status: Former Tobacco user Tobacco use type: Cigarette Years Smoked: 25 year e-Cigarette/Vaping Use: Never Used service: No Current occupational status: employed Cognitive needs: No Hearing needs: No Vision needs: Yes Questionnaire PHQ-9 Over the last 2 weeks, how often have you been bothered by any of the following problems? 1. Little interest or pleasure in doing things: not at all 2. Feeling down, depressed, or hopeless: not at all 3. Trouble falling or staying asleep, or sleeping too much: not at all 4. Feeling tired or having little energy: not at all 5. Poor appetite or overeating: not at all 6. Feeling bad about yourself - or that you are a failure or have let yourself or your family down: not at all 7. Trouble concentrating on things, such as reading the newspaper or watching television: not at all 8. Moving or speaking so slowly that other people could have noticed. Or the opposite - being so fidgety or restless that you have been moving around a lot more than usual: not at all 9. Thoughts that you would be better off or of hurting yourself in some way: not at all Total score: 0 Depression Screening Interpretation: Negative Depression Screening Done: Yes 93713 - PHQ-9 Billing: Yes Source: Developed by Drs. Hi Cool, Radha Santana, Francisco J Mcdonald and colleagues, with an educational susana from [employer]. Thrive Questionnaire Date Thrive assessed: 11/22/23 I am a: Patient What is your living situation today?: I have a steady place to live Within the past 12 months, did the food you bought not last and you didn't have the money to get more?: Never true Within the past 12 months, did you worry whether your food would run out before you got money to buy more?: Never true Do you have trouble paying for medicines?: No Do you have trouble getting transportation to medical appointments?: No Do you have trouble paying your heating and electricity bill?: No Do you have trouble taking care of your child, family member or friend?: No Do you have trouble with day-to-day activities such as bathing, preparing meals, shopping, managing finances, etc.?: No Are you currently unemployed and looking for a job?: No Are you interested in more education?: No Please select the resources that you would like help with: None Currently or been in a relationship where the following occur: No concerns reported THRIVE Score: 0 AUDIT C Alcohol Use Questionnaire (AUDIT-C) 1. How often do you have a drink containing alcohol?: Never Total Score: 0 EMANUEL-7 AMB Questionnaire EMANUEL-7 Date EMANUEL - 7 assessed: 11/22/23 Feeling nervous, anxious, or on edge: 0 = Not at all Not being able to stop or control worryin = Not at all Worrying too much about different things: 0 = Not at all Trouble relaxin = Not at all Being so restless that it is hard to sit still: 0 = Not at all Becoming easily annoyed or irritable: 0 = Not at all Feeling afraid as if something awful might happen: 0 = Not at all Total EMANUEL-7 score (0-4 normal; 5-9 mild; 10-14 moderate; 15-21 severe): 0 Source: Developed by Drs. Hi Cool, Radha Santana, Francisco J Mcdonald and colleagues, with an educational susana from [employer]. EMANUEL-7 Assessment Billing EMANUEL-7 Assessment Tool: EMANUEL-7 Assessment 18987 Physical exam (Primary Care) Vital Signs: Last Vital Signs Pulse 78 06/05/24 11:25 BP 148/96 H 06/05/24 11:25 Pulse Ox 96 06/05/24 11:25 Oxygen Delivery Method Room Air 06/05/24 11:25 BMI result Body Mass Index 27.6 Tobacco/Smoking Status: Tobacco use Status Tobacco use date assessed 05/31/23 06/05/24 11:26 Patient Tobacco Use Status Former Tobacco user 06/05/24 11:26 Tobacco use type Cigarette 06/05/24 11:26 e-Cigarette/Vaping Use Never Used 06/05/24 11:26 PHQ-9: PHQ-9 Score PHQ-9: Total score 0 06/05/24 11:26 Depression Screening Interpretation: Negative Thrive Assessment: Date of Thrive Assessment Date Thrive assessed 11/22/23 06/05/24 11:26 Currently or been in a relationship where the following occur: No concerns reported Coding Level of Care Code Est Pt Level 3 (76674) Est Pt Prev Care 40-64y(61278) Diagnoses Encounter for general adult medical examination with abnormal findings Z00.01 Respiratory tract congestion with cough R05.8 Lipid disorder E78.9 Impaired fasting blood sugar R73.01 Colonoscopy refused Z53.20 Additional Codes PHQ-9 - 64199 - PHQ-9 Billing: Yes ([id number]) EMANUEL-7 Assessment Billing - EMANUEL-7 Assessment Tool: EMANUEL-7 Assessment 64471 ([id number]) Assessment & Plan Assessment & Plan (1) Encounter for general adult medical examination with abnormal findings: Code(s): Z00.01 - Encounter for general adult medical examination with abnormal findings Category: Medical (2) Respiratory tract congestion with cough: Code(s): R05.8 - Other specified cough Category: Medical (3) Lipid disorder: Code(s): E78.9 - Disorder of lipoprotein metabolism, unspecified Category: Medical (4) Impaired fasting blood sugar: Code(s): R73.01 - Impaired fasting glucose Category: Medical (5) Colonoscopy refused: Code(s): Z53.20 - Procedure and treatment not carried out because of patient's decision for unspecified reasons Category: Medical Plan Physical exam - The patient is a 64-year-old male presenting with a persistent cough and chest congestion. - Symptom onset was one week ago, initiated by a sore throat which temporarily resolved but recurred. - There has been an associated productive cough with greenish-yellow phlegm. - requiring intermittent use of guaifenesin. - Cough severity peaked yesterday but is reduced today. Continued to declined to do colonoscopy Medications - Guaifenesin 100 mg per hour for chest congestion - atorvastatin 80 mg for lipid disorder Diagnostic results - Fasting blood sugar: Prediabetic range Patient Instructions - Begin prescribed antibiotics as advised. - Continue using ebfw-ylb-ghztsfp cough medicine such as Delsym, if necessary, as directed. - Monitor symptoms and report if no improvement following the completion of antibiotics. - Continue use of guaifenesin for chest congestion. - Use probiotics concurrently with antibiotics to maintain gut emmanuel. Orders: Orders Hemoglobin A1c 5 Months E78.9 - Disorder of lipoprotein metabolism, unspecified, R73.01 - Impaired fasting glucose Complete Blood Count Auto Diff 5 Months E78.9 - Disorder of lipoprotein metabolism, unspecified, R73.01 - Impaired fasting glucose Comprehensive [place]. Panel Fast 5 Months E78.9 - Disorder of lipoprotein metabolism, unspecified, R73.01 - Impaired fasting glucose
== END 2024-06-05 12:12 | disposition home or self-care (01) ==
PROVIDERS: PCP Internal Medicine; Visit Provider Internal Medicine
DX: Z00.01 Encounter for general adult medical examination with abnormal findings (principal); R05.8 Other specified cough; E78.9 Disorder of lipoprotein metabolism, unspecified; R73.01 Impaired fasting glucose; Z53.20 Procedure and treatment not carried out because of patient's decision for unspecified reasons

== ENCOUNTER → 2024-06-05 11:16 | Outpatient (BNVA) | payer OTHER, SELFPAY | PROVIDERS: PCP Internal Medicine; Visit Provider Internal Medicine | DX: Z00.01 Encounter for general adult medical examination with abnormal findings (principal); R05.8 Other specified cough; E78.9 Disorder of lipoprotein metabolism, unspecified; R73.01 Impaired fasting glucose | CPT/HCPCS: 96127; 99212; 99396 ==

== ENCOUNTER 2024-11-26 06:03 | Outpatient (REF) | payer OTHER, SELFPAY ==
--- OUTSIDE RECORDS SUMMARY | 2024-11-26 06:06 | XMS_ITS | Clinical Summary ---
Author Organization [employer] Address [address] [facility] [address] [place] [address] Care Team Providers Care Legal File Clerk Name Role Phone Unavailable Primary Care Provider Unavailabl e Immunizations Immunization Administration Dates Next Due Influenza injectable quadrivalent [...] Panel 1961 SDOH Screening 1961 Sigmoidoscopy 1961 Disability Screening 1961 Alcohol/Substance Use Screening 1973 Tobacco Screening 1973 Hepatitis C Screening 1979 Pneumococcal Vaccine: 50+ Years (1 of 1 - PCV) 2011 Zoster Vaccines (1 of 2) 2011 COVID-19 Vaccine ( season) 2023 04/27/2023, 01/11/2023, 07/02/2022, Additional history exists Influenza Vaccine (#1) 2024 01/04/2023 DTaP/Tdap/Td Vaccines (2 - Td or [...] patient's age to complete this topic Meningococcal B Vaccine Aged Out No l onger eligible based on patient's age to complete this topic Meningococcal Vaccine Aged Out No chencho vel eligible based on patient's age to complete this topic RSV under 20 months Aged Out No longe r eligible based on patient's age to complete this topic Rotavirus Vaccines Aged Out No longer eligible based on patient's age to complete this topic Insurance [facility] STANDARD [facility] ACO
[2024-11-26 10:06] LABS: MANUAL DIFF FLAG NO
[2024-11-26 10:42] LABS: Hemoglobin A1C 161.0156 umol/L; Total Hemoglobin (HGBA1C) 4151.2907 umol/L
[2024-11-26 10:53] LABS: Alanine Aminotransferase 39 U/L (0-40); Albumin Level 4.5 g/dL (3.5-5.0); Alkaline Phosphatase 75 U/L (39-117); Anion Gap 15 (12-20); Aspartate Amino Transferase 34 U/L (5-37); Blood Urea Nitrogen 25 mg/dL (9-16); Calcium 9.0 mg/dL (8.4-10.2); Carbon Dioxide 24 mmol/L (22-29); Chloride 107 mmol/L (96-108); Estimated Glomerular Filt Rate > 60; Potassium 4.1 mmol/L (3.3-5.1); Sodium 142 mmol/L (135-145); Total Protein 6.7 g/dL (6.5-8.0)
[2024-11-26 10:54] LABS: Hematocrit 45.9 % (42.0-52.0); Hemoglobin 15.4 g/dl (14.0-18.0); Imm Gran Abs Auto 0.01 X10*3/uL (0.00-0.03); Imm Gran Pct Auto 0.1 % (0.0-0.4); Lymphocytes Absolute Auto 1.8 X10*3/uL (1.2-4.9); Mean Corpuscular HGB Conc 33.6 g/dl (31.0-36.0); Mean Corpuscular Hemoglobin 30.0 pg (27.0-33.0); Mean Corpuscular Volume 89.5 fL (80.0-98.0); NRBC Abs Auto 0.000 X10*3/uL (0.0-0.012); NRBC Pct Auto 0.0 /100WBC (0.0-0.2); Platelet Count 173 X10*3/uL (160-400); Red Blood Count 5.13 X10*6/uL (4.60-5.80); White Blood Count 7.0 X10*3/uL (4.8-10.8)
== END 2024-11-26 06:04 | disposition home or self-care (01) ==
LOC: HO.HMGCLDS 06:03
PROVIDERS: PCP Internal Medicine; Visit Provider Internal Medicine
DX: R73.01 Impaired fasting glucose (principal); E78.9 Disorder of lipoprotein metabolism, unspecified
CPT/HCPCS: 36415; 80053; 83036; 85025

== ENCOUNTER 2024-12-04 08:18 | Outpatient (AMB) | payer OTHER, SELFPAY ==
[2024-12-04 08:21] VITALS: BP 138/80; PULSE 84; O2SAT 96; BMI 27.3
--- NOTE | 2024-12-04 08:21 | A.OFFPC_ITS ---
Vital Signs 12/04/24 08:21 Height 5 ft 10 in Weight 190 lb BMI 27.3 BP 138/80 Blood Pressure Location Lt brachial Position Sitting Pulse 84 Pulse Source Pulse Oximeter Pulse Oximetry (%) 96 Intake Visit Reasons: 6m follow up Head Of Product Required: No Accompanied by: Self / Same As Patient Allergies No Known Allergies Allergy (Verified 12/04/24 08:21) Medication List - Last Reconciled 12/04/24 by Noreen Montes De Oca MD hydrocortisone 2.5% 1 appl topical BID PRN 30 days simvastatin 80 mg PO BEDTIME 90 days Tobacco use date assessed: 12/04/24 Dental Screening Dental Screen Date: 12/04/24 Did you have a dental visit in the last 12 months?: Yes Did you have a dental problem in the last 6 months where you did not have access to dental care?: No Was dental information given to patient?: Patient has dentist HPI 6m follow up HPI Details Chief Complaint The patient presents to discuss long-term statin usage and inquiry about cholesterol management updates. History of Present Illness The patient is a 64-year-old male presenting with the need to monitor cholesterol levels and discuss prediabetes management. Hyperlipidemia: - The patient has been on statins for ap proximately 15 years due to high cholesterol. - The patient expresses concerns and inq uiries about the long-term benefits and risks of statin use. - The patient reports no noticeable side effects from statin use and regular monitoring shows normal liver enzymes. - Family history indicates predispositio n with the patient's father having passed at 61 from a heart attack. Prediabetes: - Patient's hemoglobin A1c values remain stable at 5.7. - Fasting glucose was 110 mg/dL, showing an improvement from a previous reading of 114 mg/dL. - The patient has significantly reduced sugar intake and has maintained stable weight through diet and exercise. Medical History: - Hyperlipidemia, managed with statins f or 15 years - Prediabetes, current hemoglobin A1c at 5.7 Social History: - Exercises daily, walking a couple of m aiden each day. - Patient has significantly reduced inta ke of high-sugar foods and processed snacks. - Patient is mindful of weight managemen t but finds it harder to lose weight as he ages. Family History: - Father passed at age 61 from a second heart attack. - Strong family history of heart disease , potentially genetic predisposition. Diagnostic Results: - Labs: - Hemoglobin A1c: 5.7 (indicatin g prediabetes) - Fasting glucose: 110 mg/dL Problem List - Hyperlipidemia - Prediabetes Patient Instructions - Continue current statin medication reg imen as liver enzymes are normal. - Maintain lifestyle changes to control sugar intake and manage weight. - Continue regular exercise to support c ardiovascular health. f/u 6 M, labs are needed fasting before Review of Systems - General: No fever no chills - Neurological: No headaches no dizziness - Ear nose throat: No sore throat no hearing difficulty no ear pain - Cardiovascular: No syncope, no chest pain, no palpitations - Gastrointestinal: No nausea vomiting or diarrhea - Endocrine: No polyuria polydipsia no heat intolerance - Genitourinary: No dysuria , no blood in urine Physical Exam General: No acute distress HEENT: No acute findings Neck: Supple Respiratory system: Lungs clear, no audible wheeze Cardiovascular: S1-S2 regular in rate and rhythm, heart is fine Gastrointestinal: No pain Extremities: No new findings STRUCTURAL IRONWORKER: Alert awake oriented x3 motor sensory intact Skin: Normal turgor [facility] Surgical History No pertinent past surgical history Family History Other Substance use disorder Social History Housing: House Patient Tobacco Use Status: Former Tobacco user Tobacco use type: Cigarette Years Smoked: 25 year e-Cigarette/Vaping Use: Never Used service: No Current occupational status: employed and retired Cognitive needs: No Hearing needs: No Vision needs: Yes Questionnaire Thrive Questionnaire Date Thrive assessed: 06/05/24 I am a: Patient What is your living situation today?: I have a steady place to live Within the past 12 months, did the food you bought not last and you didn't have the money to get more?: Never true Within the past 12 months, did you worry whether your food would run out before you got money to buy more?: Never true Do you have trouble paying for medicines?: No Do you have trouble getting transportation to medical appointments?: No Do you have trouble paying your heating and electricity bill?: No Do you have trouble taking care of your child, family member or friend?: No Do you have trouble with day-to-day activities such as bathing, preparing meals, shopping, managing finances, etc.?: No Are you currently unemployed and looking for a job?: No Are you interested in more education?: No Please select the resources that you would like help with: None Currently or been in a relationship where the following occur: No concerns reported THRIVE Score: 0 AUDIT C Alcohol Use Questionnaire (AUDIT-C) 1. How often do you have a drink containing alcohol?: Never 3. How often do you have six or more drinks on one occasion?: Never Total Score: 0 Score Reviewed/Action Taken: Yes EMANUEL-7 AMB Questionnaire EMANUEL-7 Date EMANUEL - 7 assessed: 12/04/24 Feeling nervous, anxious, or on edge: 0 = Not at all Not being able to stop or control worryin = Not at all Worrying too much about different things: 0 = Not at all Trouble relaxin = Not at all Being so restless that it is hard to sit still: 0 = Not at all Becoming easily annoyed or irritable: 0 = Not at all Feeling afraid as if something awful might happen: 0 = Not at all Total EMANUEL-7 score (0-4 normal; 5-9 mild; 10-14 moderate; 15-21 severe): 0 Source: Developed by Drs. Hi Cool, Radha Santana, Francisco J Mcdonald and colleagues, with an educational susana from [employer]. EMANUEL-7 Assessment Billing EMANUEL-7 Assessment Tool: EMANUEL-7 Assessment 66453 Physical exam (Primary Care) Vital Signs: Last Vital Signs Pulse 84 12/04/24 08:21 BP 138/80 12/04/24 08:21 Pulse Ox 96 12/04/24 08:21 BMI result Body Mass Index 27.3 Tobacco/Smoking Status: Tobacco use Status Tobacco use date assessed 12/04/24 12/04/24 08:25 Patient Tobacco Use Status Former Tobacco user 12/04/24 08:25 Tobacco use type Cigarette 12/04/24 08:25 e-Cigarette/Vaping Use Never Used 12/04/24 08:25 Thrive Assessment: Date of Thrive Assessment Date Thrive assessed 06/05/24 12/04/24 08:25 Currently or been in a relationship where the following occur: No concerns reported Coding Level of Care Code Est Pt Level 3 (95742) Complex EM visit Add On G2211 Diagnoses Lipid disorder E78.9 Impaired fasting blood sugar R73.01 Additional Codes EMANUEL-7 Assessment Billing - EMANUEL-7 Assessment Tool: EMANUEL-7 Assessment 68704 ([id number]) Assessment & Plan Assessment & Plan (1) Lipid disorder: Code(s): E78.9 - Disorder of lipoprotein metabolism, unspecified Category: Medical (2) Impaired fasting blood sugar: Code(s): R73.01 - Impaired fasting glucose Category: Medical Plan Chief Complaint The patient presents to discuss long-term statin usage and inquiry about cholesterol management updates. History of Present Illness The patient is a 64-year-old male presenting with the need to monitor cholesterol levels and discuss prediabetes management. Hyperlipidemia: - The patient has been on statins for approximately 15 years due to high cholesterol. - The patient expresses concerns and inquiries about the long-term benefits and risks of statin use. - The patient reports no noticeable side effects from statin use and regular monitoring shows normal liver enzymes. - Family history indicates predisposition with the patient's father having passed at 61 from a heart attack. Prediabetes: - Patient's hemoglobin A1c values remain stable at 5.7. - Fasting glucose was 110 mg/dL, showing an improvement from a previous reading of 114 mg/dL. - The patient has significantly reduced sugar intake and has maintained stable weight through diet and exercise. Medical History: - Hyperlipidemia, managed with statins for 15 years - Prediabetes, current hemoglobin A1c at 5.7 Social History: - Exercises daily, walking a couple of miles each day. - Patient has significantly reduced intake of high-sugar foods and processed snacks. - Patient is mindful of weight management but finds it harder to lose weight as he ages. Family History: - Father passed at age 61 from a second heart attack. - Strong family history of heart disease, potentially genetic predisposition. Diagnostic Results: - Labs: - Hemoglobin A1c: 5.7 (indicating prediabetes) - Fasting glucose: 110 mg/dL Problem List - Hyperlipidemia - Prediabetes Patient Instructions - Continue current statin medication regimen as liver enzymes are normal. - Maintain lifestyle changes to control sugar intake and manage weight. - Continue regular exercise to support cardiovascular health. f/u 6 M, labs are needed fasting before Orders: Orders Complete Blood Count Auto Diff Today E78.9 - Disorder of lipoprotein metabolism, unspecified, R73.01 - Impaired fasting glucose Comprehensive [place]. Panel Fast Today E78.9 - Disorder of lipoprotein metabolism, unspecified, R73.01 - Impaired fasting glucose Lipid Panel Today E78.9 - Disorder of lipoprotein metabolism, unspecified, R73.01 - Impaired fasting glucose Hemoglobin A1c Today R73.01 - Impaired fasting glucose
== END 2024-12-04 10:08 | disposition home or self-care (01) ==
LOC: HO.HMCC 08:19
PROVIDERS: PCP Internal Medicine; Visit Provider Internal Medicine
DX: E78.9 Disorder of lipoprotein metabolism, unspecified (principal); R73.01 Impaired fasting glucose

== ENCOUNTER → 2024-12-04 08:18 | Outpatient (BNVA) | payer OTHER, SELFPAY | PROVIDERS: PCP Internal Medicine; Visit Provider Internal Medicine | DX: R73.01 Impaired fasting glucose (principal); E78.5 Hyperlipidemia, unspecified; R73.03 Prediabetes | CPT/HCPCS: 96127; 99212 ==